=== PATIENT | male | born 1995 | race Caucasian/White ===

== ENCOUNTER 2017-09-25 17:47 | Emergency (ER) | payer BC ==
[2017-09-25] MEDS: predniSONE 20 MG TABLET PO (18:41)
[2017-09-25] MEDS: ACETAMINOPHEN 500 MG TABLET PO (19:23)
[2017-09-25] MEDS: IPRATRPIUM/ALBUTEROL 0.5/2.5MG 3 ML NEBU. NEB (19:48)
== END 2017-09-25 20:28 | disposition home or self-care (01) ==
LOC: ER 17:47
DX: S20.219A Contusion of unspecified front wall of thorax, initial encounter (principal); J45.901 Unspecified asthma with (acute) exacerbation; W22.8XXA Striking against or struck by other objects, initial encounter; Y93.89 Activity, other specified; Y92.69 Other specified industrial and construction area as the place of occurrence of the external cause; Y99.8 Other external cause status
CPT/HCPCS: 71046; 94640; 99284-25; J7512; J7620

== ENCOUNTER 2018-03-06 21:16 | Emergency (ER) | payer SELFPAY, BC | END 2018-03-06 23:10 | disposition home or self-care (01) | LOC: ER 23:10 | DX: M94.0 Chondrocostal junction syndrome [Tietze] (principal); J45.909 Unspecified asthma, uncomplicated | CPT/HCPCS: 71046; 84484; 93005; 99284 ==

== ENCOUNTER 2019-07-28 17:54 | Emergency (ER) | payer SELFPAY ==
[~2019-07-28] VITALS: Ht 185.4 cm; Wt 140.6 kg
[~2019-07-28 17:54] MED LIST: IBUP-1060 PO; PRED50TA PO; PROAIR RESPICL90 MCG IH
[2019-07-28 19:03] VITALS: BP 156/82
--- NOTE | 2019-07-28 19:19 | PHYS DOC ---
Past Medical History Past Medical History: Asthma Past Surgical History: No Surgical History Alcohol Use: None Drug Use: None Adult General Chief Complaint Chief Complaint: LACERATION/AVULSION HPI HPI Patient is a 24 year old male who presents with right hand laceration, patient is right-handed, he states he accidentally cut himself with a blade Review of Systems Review of Systems Constitutional: Denies fever or chills [] Integument: Reports right hand laceration Neurologic: Denies headache, focal weakness or sensory changes [] All other systems were reviewed and found to be within normal limits, except as documented in this note. Allergies Allergies Allergies Coded Allergies Type Severity Reaction Last Updated Verified No Known Drug Allergies 09/25/17 No Physical Exam Physical Exam Constitutional: Well developed, well nourished, no acute distress, non-toxic appearance. [] Skin: Warm, dry, patient has a superficial laceration between the hypothena and thenar roughly 3 cm long. There is no obvious tendon involvement. Full range of motion to the right fingers. Adequate radial, medial, ulnar sensation to the right hand. +2 right radial pulse. Cap refill less than 2 seconds the right fingers. Back: No tenderness, no CVA tenderness. [] Extremities: No tenderness, no cyanosis, no clubbing, ROM intact, no edema. [] Neurologic: Alert and oriented X 3, normal motor function, normal sensory function, no focal deficits noted. [] Psychologic: Affect normal, judgement normal, mood normal. [] Current Patient Data Vital Signs Vital Signs Date Time Temp Pulse Resp B/P (MAP) Pulse Ox O2 Delivery O2 Flow Rate FiO2 07/28/19 19:03 99.3 96 16 156/82 (106) 97 Room Air 99.3 EKG EKG [] Radiology/Procedures Radiology/Procedures [] Course & Med Decision Making Course & Med Decision Making Pertinent Labs and Imaging studies reviewed. (See chart for details) This is a 24-year-old male patient with a superficial laceration on the right hand. Laceration was closed with Dermabond and covered with Steri-Strips by me. Tetanus is up-to-date. Discharged to home. Wound care instructions and return precautions provided. Dragon Disclaimer Dragon Disclaimer This electronic medical record was generated, in whole or in part, using a voice recognition dictation system. Departure Departure Impression: Primary Impression: Laceration of right hand Disposition: HOME, SELF-CARE Condition: STABLE Referrals: INDIGO ANDRES MD (PCP) follow up as needed Patient Instructions: Laceration Care, Adult, [id number] Additional Instructions: You have a laceration to the right hand that was closed with Dermabond and Steri-Strips. The Steri-Strips will fall off on their own. You can wash your hands. Keep the area clean and dry. Apply Neosporin to the area twice a day. Monitor the area for any signs of infection including but not limited to increased redness warmth, yellow drainage from the area and return to the ED if they occur. Problem Qualifiers Primary Impression: Laceration of right hand Encounter type: initial encounter Foreign body presence: without foreign body Qualified Codes: S61.411A - Laceration without foreign body of right hand, initial encounter SAMI [employer] Jul 28, 2019 19:19
== END 2019-07-28 19:33 | disposition home or self-care (01) ==
LOC: ER 17:54
DX: S61.411A Laceration without foreign body of right hand, initial encounter (principal); J45.909 Unspecified asthma, uncomplicated; W27.8XXA Contact with other nonpowered hand tool, initial encounter; Y93.89 Activity, other specified; Y92.89 Other specified places as the place of occurrence of the external cause; Y99.8 Other external cause status
CPT/HCPCS: 12002; 99283